=== PATIENT | female | born 1980 | race Caucasian/White ===

== ENCOUNTER 2021-12-04 13:00 | Emergency (ER) | payer MEDICAID ==
[~2021-12-04] VITALS: Ht 172.7 cm; Wt 111.5 kg
[2021-12-04 14:37] VITALS: BP 168/107
[2021-12-04] MEDS ORDERED: methylPREDNISolone SOD SUCC 125 MG/2 ML VL IM ONE (14:45)
[2021-12-04] MEDS ORDERED: EPINEPHrine HCL 1 MG/1 ML AMP SC ONE (14:45)
[2021-12-04] MEDS ORDERED: ONDANSETRON ODT 4 MG TAB PO ONE (15:00)
[2021-12-04] MEDS ORDERED: HYDR50CA PO (15:27)
[2021-12-04] MEDS ORDERED: PRED20TA2 PO (15:27)
== END 2021-12-04 15:42 | disposition home or self-care (01) ==
LOC: ER 13:00
DX: T78.40XA Allergy, unspecified, initial encounter (principal); J45.909 Unspecified asthma, uncomplicated; K21.9 Gastro-esophageal reflux disease without esophagitis; E78.5 Hyperlipidemia, unspecified; F17.210 Nicotine dependence, cigarettes, uncomplicated; I10 Essential (primary) hypertension; Z90.49 Acquired absence of other specified parts of digestive tract; Z88.0 Allergy status to penicillin; Z88.1 Allergy status to other antibiotic agents; X58.XXXA Exposure to other specified factors, initial encounter
CPT/HCPCS: 96372; 99284; J0171; J2930; Q0162